=== PATIENT | male | born 1975 | race Caucasian/White ===

== ENCOUNTER 2016-06-16 01:48 | Emergency (ER) | payer OTHER | END 2016-06-16 03:04 | disposition home or self-care (01) | LOC: FER 01:48 | DX: S29.011A Strain of muscle and tendon of front wall of thorax, initial encounter (principal); R05 Cough; F31.9 Bipolar disorder, unspecified; F17.200 Nicotine dependence, unspecified, uncomplicated | CPT/HCPCS: 71020; 87804; 87899; 99283 ==